=== PATIENT | female | born 1945 | race Caucasian/White ===

== ENCOUNTER 2016-07-15 14:43 | Emergency (ER) | payer OTHER ==
--- NOTE | ~2016-07-15 | EKG ---
PATIENT: LEENA RENEE UNIT #: [id number] Ventricular Rate: 68 BPM Atrial Rate: 68 BPM P-R Interval: 140 ms QRS Duration: 70 ms Q-T Interval: 398 ms QTC Calculation(Bezet): 423 ms P [place]: 54 degrees Calculated R [place]: 16 degrees Calculated T [place]: 10 degrees Diagnosis Line: Normal sinus rhythm Diagnosis Line: Normal ECG Diagnosis Line: No previous ECGs available Diagnosis Line: Confirmed by SOL RONQUILLO MD ([id number]) on 07/20/2016 Diagnosis Line: 9:38:05 AM INTERPRETING MD: SHIMA MOSQUEDA
[~2016-07-15 14:43] MED LIST: BACTRIM DS TABL1 TA1 PO; NO MEDICATIONS; PYRIDIUM PO
== END 2016-07-15 14:58 | disposition home or self-care (01) ==
LOC: SED 14:43
DX: I10 Essential (primary) hypertension (principal)
CPT/HCPCS: 93005; 99283